=== PATIENT | male | born 2005 | race Hispanic/Latino ===

== ENCOUNTER → 2025-02-13 17:48 | Outpatient (REF) | payer MEDICARE, SELFPAY | LOC: RAD 17:48 | PROVIDERS: ATTENDING PHYSICIAN Nurse Practitioner Pediatrics; FAMILY PHYSICIAN Pediatrics | DX: M79.671 Pain in right foot (principal); M41.9 Scoliosis, unspecified | CPT/HCPCS: 72081; 73630 ==